=== PATIENT | male | born 1955 | race Caucasian/White ===

== ENCOUNTER → 2016-05-19 | Day surgery (SDC) | payer BC ==
[2016-05-06 09:59] VITALS: BMI 41.0
[~2016-05-19] VITALS: Ht 172.7 cm; Wt 121.8 kg
[~2016-05-19] MED LIST: ATROPINE SULFATE 0.1 MG/ML 5ML SYR IV PRN; BUPIVACAINE 0.5 % 5 MG/1 ML MPF 30ML VIAL ONE; CEFAZOLIN 3000 MG/65 ML D5W IV SCH; DEXAMETHASONE SOD INJ 4 MG/ML VIAL ONE; EpHEDrine SULFATE INJ 50 MG/ML AMP IV PRN; FENTANYL CITRATE INJ 50 MCG/1 ML 2 ML VIAL ONE; FLUMAZENIL 0.1 MG/1 ML 10 ML VIAL IV PRN; GLYCOPYRROLATE INJ 0.2 MG/ML VIAL ONE; HYDROmorphone INJ 1 MG/ML SYR IV PRN; HydrALAZINE HCL 20 MG/ML VIAL IV. STA; HydrALAZINE HCL 20 MG/ML VIAL ONE; LABETALOL HCL IV 5 MG/ML 20ML IV PRN; LACTATED RINGER'S 1000ML 1,000 ML IV SCH; LIDOCAINE HCL 2% 2 ML VIAL (20MG/ML) ONE; LISI-461 PO; METOPROLOL TARTRATE 1 MG/ML VIAL ONE; MIDAZOLAM HCL 1 MG/ML 2ML VIAL ONE; MoRPHine SULFATE 4 MG/ML 1 ML CARP\\VIAL IV PRN; NALOXONE HCL 0.4 MG/1 ML VIAL/CARP IV PRN; NEOSTIGMINE METHYLSULFATE 5 MG/5 ML SYR ONE; ONDANSETRON INJ 2 MG/ML 2 ML VIAL IV PRN; ONDANSETRON INJ 2 MG/ML 2 ML VIAL ONE; OXYCODONE/ACETAMINOPHEN 5-325 TAB PO PRN; PROMETHAZINE HCL INJ 12.5 MG in SODIUM CHLORIDE 0.9% 50ML 50 ML IV PRN; PROPOFOL IV EMULSION 10 MG/ML 20 ML VIAL IV ONE; ROCURONIUM BROMIDE 10 MG/ML 5 ML VIAL ONE; SODIUM CHLORIDE 0.9% 1000ML 1,000 ML IV SCH; SUCCINYLCHOLINE CHLORIDE 20 MG/ML 10 ML VIAL IV ONE
[2016-05-19 05:30] VITALS: BP 165/92; PULSE 98; TEMP 36.8; O2SAT 94; Ht 172.7 cm; Wt 121.8 kg
--- NOTE | 2016-05-19 06:55 | History & Physical Bridge Note ---
H&P Re-Evaluation Bridge Note: I have examined the patient, reviewed the History & Physical and in the interval since the performance of the History & Physical I have noted the following changes of clinical significance: No changes noted
--- NOTE | 2016-05-19 08:08 | [facility] Post Operative Brief Note ---
Immediate Operative Summary Operative Date May 19, 2016. Pre-Operative Diagnosis umbilical hernia Post-Operative Diagnosis same as preop Procedure(s) Performed Repair of Umbilical Hernia Surgeon Dr. Valdovinos [employer] Engineer Surgeon(s) Susan Salazar PA-C Estimated Blood Loss 5mL Findings See dictation Specimens None Drains None Anesthesia General Complication(s) None Disposition Recovery Room / PACU
--- NOTE | 2016-05-19 08:24 | Discharge Instructions ---
Discharge Instructions Date of Service May 19, 2016. Admission Reason for Admission: Umbilical Hernia Discharge Discharge Diagnosis / Problem: Same Discharge Goals Goal(s): Decrease discomfort Activity Recommendations Activity Limitations: per Instructions/Follow-up section Lifting Limitations: no more than 10 pounds (for 6 weeks) Shower/Bathe: tomorrow (Shower only) . Instructions / Follow-Up Instructions / Follow-Up ACTIVITY RECOMMENDATIONS: * Walk as much as possible. * No heavy lifting (>10 lbs.) for 6 weeks. SPECIAL CARE INSTRUCTIONS: * Ice to hernia repair site on and off until bedtime tonight. * May shower in 24 hours. Let water run over area and pat dry. * Remove clear dressing and cotton ball on . * Leave steri strips on for one week. * Call the surgeon's office with any questions or concerns - (ex. temperature higher than 101 degrees F, excessive bleeding or pain). MEDICATIONS: Resume previous medications unless instructed otherwise by your surgeon. * Ibuprofen 600 mg every 6 hours with food * Percocet 1 every 4 hours, as needed for pain FOLLOW UP VISIT: If not already scheduled, please call the office to schedule a two week follow- up appointment. Office number Current Hospital Diet Patient's current hospital diet: Discharge Diet Recommended Diet: Regular Diet Procedures Procedures Performed: Repair of Umbilical Hernia Pending Studies Studies pending at discharge: no Medical Emergencies . Who to Call and When: Medical Emergencies: If at any time you feel your situation is an emergency, please call 911 immediately. . Non-Emergent Contact Non-Emergency issues call your: Primary Care Provider, Surgeon Call Non-Emergent contact if: your pain is worsening, wound has increased redness, wound has increased pain . "Provider Documentation" section prepared by Ja Valdovinos. VTE Core Measure Inpt VTE Proph given/why not?: Treatment not indicated
[2016-05-19 09:05] VITALS: BP 138/79; PULSE 77; TEMP 36.8; O2SAT 94
--- NOTE | 2016-05-19 09:19 | Anesthesiology Progress Note ---
Anesthesia Post Op Note Date & Time May 19, 2016 at 09:18 Vital Signs Pain Intensity: 0 Vital Signs Past 12 Hours Date Time Temp Pulse Resp B/P Pulse Ox O2 Delivery O2 Flow Rate FiO2 05/19/16 08:57 71 18 93 05/19/16 08:57 71 18 05/19/16 08:55 144/93 05/19/16 08:52 69 18 93 05/19/16 08:52 69 18 05/19/16 08:50 149/92 05/19/16 08:49 152/101 05/19/16 08:47 67 18 05/19/16 08:47 66 18 93 05/19/16 08:46 68 21 94 05/19/16 08:46 68 21 05/19/16 08:45 147/98 05/19/16 08:44 36.6 68 20 147/89 94 Nasal Cannula 3 05/19/16 08:41 66 13 05/19/16 08:41 65 13 93 05/19/16 08:40 148/98 05/19/16 08:36 67 14 05/19/16 08:36 66 14 93 05/19/16 08:35 153/104 05/19/16 08:33 158/105 05/19/16 08:31 71 14 91 05/19/16 08:31 71 14 05/19/16 08:30 144/89 05/19/16 08:29 68 16 05/19/16 08:29 68 16 96 05/19/16 08:25 165/90 05/19/16 08:24 78 16 94 05/19/16 08:24 78 16 05/19/16 08:20 149/106 05/19/16 08:19 77 18 05/19/16 08:19 77 18 92 05/19/16 08:17 156/110 05/19/16 08:15 155/109 05/19/16 08:14 84 27 159/115 92 05/19/16 08:14 87 27 05/19/16 08:14 36.8 84 14 159/115 94 Mask 10 05/19/16 05:30 36.8 98 18 165/92 94 Room Air Notes Mental Status: alert / awake / arousable, participated in evaluation Pt Amnestic to Procedure: Yes Nausea / Vomiting: adequately controlled Pain: adequately controlled Airway Patency, RR, SpO2: stable & adequate BP & HR: stable & adequate Hydration State: stable & adequate Anesthetic Complications: no major complications apparent
[2016-05-19 09:35] VITALS: BP 127/78; PULSE 72; TEMP 36.8; O2SAT 95
[2016-05-19 10:05] VITALS: BP 139/77; PULSE 80; TEMP 36.6; O2SAT 94
--- NOTE | 2016-05-19 14:31 | OPERATIVE REPORT ---
DATE OF OPERATION: 05/19/2016 PREOPERATIVE DIAGNOSIS: Umbilical hernia. POSTOPERATIVE DIAGNOSIS: Same. PROCEDURE: Repair of umbilical hernia. SURGEON: Dr. Valdovinos. OFFICE ENGINEER: Susan Grant PA-C. FINDINGS: The patient actually had 2 defects in the fascia and by the fascial bridge of approximately 5 mm. The entire defect then measured approximately 2.5 cm. There was some omentum within the second more superior defect, but there was no evidence of incarcerated bowel. TECHNIQUE: The patient was given a general anesthetic and the area was prepped and draped in usual sterile fashion. Transverse incision was made below the umbilicus, carried down through the subcutaneous tissue. The hernia sac was identified on the inferior side and then away from the tissues laterally on each side. The overlying dermis of the umbilical skin was dissected off the 1st sac. I was then able to dissect that away from the surrounding tissues down to the edge of the fascia and elevate the edge of the fascia on the left side inferiorly on the right side. In dissecting the peritoneum away from the undersurface of the fascia to create a preperitoneal space was when I was then able to identify the second defect in the sac. The sac was dissected away from the surrounding tissues on the inferior side and the fascial bridge was then away and opened. That allowed me then to more easily peel the omentum out of the sac which allowed me then to separate the sac off the overlying skin and off the tissues on the superolateral side towards the left, freeing it completely. I then created a preperitoneal space around the entire circumference of the fascial defect. The opening in the superior sac was closed with a running 2-0 Vicryl using some of the inferior sac covered. Once I had at least a 3 cm area around the entire circumference of the defect in that preperitoneal space, a 10 cm Surgimesh was placed. It was secured to the undersurface of the fascia in 4 quadrants using horizontal mattress sutures of 0 PDS. The fascial opening in the midline was then closed with a running #1 PDS. The connective tissue and nerves of the umbilical skin was tacked to the anterior surface of the fascia to try to create an inverted umbilicus. The skin was closed with 4-0 Monocryl in a running subcuticular fashion. The skin was anesthetized with 0.5% Marcaine. The skin was cleansed, dried, benzoin placed, Steri-Strips applied, a cotton ball placed in the umbilicus and a clear dressing over it. The estimated blood loss was 5 mL. Sponge, needle and instrument counts were correct prior to closure. The patient tolerated the surgical procedure without complication and was transferred to recovery. I attest to the content of the Intraoperative Record and any orders documented therein. Any exceptio ns are noted below.
== END | disposition home or self-care (01) ==
LOC: C.ACU 05:17
PROVIDERS: ATTEND Surgery
DX: K42.9 Umbilical hernia without obstruction or gangrene (principal); Z87.891 Personal history of nicotine dependence; I10 Essential (primary) hypertension